=== PATIENT | female | born 1965 | race Asian ===

== ENCOUNTER 2019-12-04 07:11 | Day surgery (SDC) | payer OTHER ==
[~2019-12-04] VITALS: Ht 154.9 cm; Wt 49.9 kg
[2019-12-04] MEDS ORDERED: MIDAZOLAM 2 MG/2 ML VIAL ONE ×2 (08:40→08:53)
[2019-12-04] MEDS ORDERED: LIDOCAINE 2% 100 MG/5 ML UJET TP ONE (08:40)
[2019-12-04] MEDS ORDERED: fentaNYL 0.05 MG/ML VIAL ONE (08:40)
[2019-12-04] MEDS ORDERED: EPINEPHrine PFS 0.1 MG/ML SYR IVP ONE (09:25)
[2019-12-04] MEDS ORDERED: fentaNYL 0.05 MG/ML VIAL IVP ONE (09:45)
[2019-12-04] MEDS ORDERED: MIDAZOLAM 2 MG/2 ML VIAL IVP ONE (09:45)
== END 2019-12-04 10:00 | disposition home or self-care (01) ==
LOC: MDS 07:11 → MMU 07:12 → MDS 10:00
PROVIDERS: ATTEND Internal Medicine Gastroenterology
DX: Z12.11 Encounter for screening for malignant neoplasm of colon (principal); K63.5 Polyp of colon; K21.9 Gastro-esophageal reflux disease without esophagitis; I10 Essential (primary) hypertension; E78.00 Pure hypercholesterolemia, unspecified; Z79.82 Long term (current) use of aspirin; Z79.899 Other long term (current) drug therapy; Z98.890 Other specified postprocedural states
CPT/HCPCS: 45381; 45385; J0171; J2250; J3010

== ENCOUNTER 2019-12-05 21:32 | Observation (INO) | payer OTHER ==
[~2019-12-05] VITALS: Ht 157.5 cm; Wt 58.1 kg
[2019-12-05 21:35] VITALS: BP 105/70
--- NOTE | 2019-12-05 21:46 | NUR ---
PT AMBULATED TO BED #1
--- NOTE | 2019-12-05 22:21 | NUR ---
SALES COMMUNICATIONS MANAGER ON THE LINE FOR [employer]. SALES COMMUNICATIONS MANAGER IS VARSHA AND NUMBER IS [id number].
[2019-12-05 22:33] LABS: BASOPHILS # (AUTO) 0.1 K/uL (0.00-0.22); BASOPHILS % (AUTO) 0.6 % (0.0-2.0); EOSINOPHILS # (AUTO) 0.1 K/uL (0-0.4); EOSINOPHILS % (AUTO) 1.3 % (0.0-4.0); HEMATOCRIT 42.4 % (36-48); HEMOGLOBIN 13.6 g/dL (12.0-16.0); LYMPHOCYTES # (AUTO) 3.6 K/uL (2.5-16.5); LYMPHOCYTES % (AUTO) 32.4 % (20.5-51.1); MEAN CORPUSCULAR HEMOGLOBIN 30 pg (27-31); MEAN CORPUSCULAR HGB CONC 32 g/dL (33-37); MEAN CORPUSCULAR VOLUME 93.1 fL (80-94); MONOCYTES # (AUTO) 1.1 K/uL (0.8-1.0); MONOCYTES % (AUTO) 10.1 % (1.7-9.3); NEUTROPHILS # (AUTO) 6.2 K/uL (1.8-7.7); NEUTROPHILS % (AUTO) 55.6 % (42.2-75.2); PLATELET COUNT (AUTO) 411 K/uL (140-450); RED BLOOD CELL COUNT(AUTO) 4.56 MIL/uL (4.20-5.40); RED CELL DISTRIBUTION WIDTH 14.1 % (11.6-13.7); WHITE BLOOD COUNT (AUTO) 11.1 K/uL (4.8-10.8)
[2019-12-05 23:23] LABS: PROTHROMBIN TIME 9.9 secs (10.8-13.4)
[2019-12-05 23:28] LABS: ALBUMIN 3.7 g/dL (3.4-5.0); ANION GAP 13.8 (8-16); CARBON DIOXIDE 25.2 mmol/L (21-32); CREATININE 0.6 mg/dL (0.6-1.3); TOTAL BILIRUBIN 0.2 mg/dL (0.0-1.0)
[2019-12-06 01:05] VITALS: BP 100/68
--- NOTE | 2019-12-06 01:05 | NUR ---
RECEIVED FROM ED, PT VIA Moy DAILEY A O X 4, PT NOT ABLE TO AMBULATE PER ANIMAL SCIENCE PROFESSOR AT THIS TIME. PT WITH IV ON THE R THUMB G 22; AND LEFT HAND G 22, 2 LITERS OF BOLUS RUNNING, PATENT. PT COSTA RICAN SPEAKING W/ ANIMAL SCIENCE PROFESSOR FRIEND AT BEDSIDE, MRSA SWAB DONE. PLACED ON LOW BED, FALL RISK PROTOCOL IN PLACE. CALL LIGHT WITHIN REACH.
--- NOTE | 2019-12-06 01:05 | NUR ---
PT CRYING IN PAIN; ASKED CAR PILOT/FRIEND BOBBY W/ CELL PHONE NO [phone], FRIEND SAID SHE HAS PAIN ON HER LOW BACK
--- NOTE | 2019-12-06 01:15 | NUR ---
Patient will be admitted to care of DR. WORTHINGTON. Admited to TELEMETRY. Will go to room 105A. Belongings list completed. Report to [facility]ST RN.
[2019-12-06] MEDS ORDERED: NACL 0.9% 2,000 ML IV ONE (01:25)
--- NOTE | 2019-12-06 01:45 | NUR ---
PT'S PHYSICAL AND ASSESSMENT DONE, PATIENT'S SKIN INTACT; CHECKED ON RECTAL BELEEDING; NO BLEEDING NOTED AT THIS TIME. WILL MONITOR
--- NOTE | 2019-12-06 01:47 | NUR ---
[facility] NO- [phone]
--- NOTE | 2019-12-06 01:48 | NUR ---
PT'S WAS ASKED USING CLAIM MANAGER PHONE [id number] [phone] CONSENT FOR BLOOD TRANSFUSION. PT AGREED AND SIGNED, PT MADE A FAISAL W/ A PEN ON THE PT'S AGREEING TO HAVE A BLOOD TRANSFUSION AT 0148. WITNESSED,CONSENT ATTACHED TO CHART
--- NOTE | 2019-12-06 02:39 | NUR ---
CALLED [facility] FOR DR COONEY FARM PRODUCT PURCHASER OF DR. WORTHINGTON FOR ORDERS . TALKED TO CHULA-AWAITING CALL BACK
[2019-12-06] MEDS ORDERED: NACL 0.9% 1,000 ML IV SCH (02:50)
[2019-12-06] MEDS ORDERED: ONDANSETRON 4 MG/2 ML VIAL IVP PRN (02:55)
[2019-12-06] MEDS ORDERED: MORPHINE SULFATE 4 MG/ML SYR IVP PRN (02:55)
--- NOTE | 2019-12-06 02:59 | NUR ---
DR. COONEY CALLED BACK AND GAVE ORDERS, CARRIED DR. COLE
--- NOTE | 2019-12-06 03:10 | NUR ---
VERIFIED W/ DOCTOR EROS EARLIER W/ ORDERS TO GIVE THE MORPHINE FOR PAIN IN HER BACK 05/01,ADMINISTERED MORPHINE PRN
--- NOTE | 2019-12-06 05:00 | NUR ---
CHECKED ON PATIENT, SLEEPING. NO COMPLAINTS AT THIS TIME. NO BLEEDING NOTED
--- NOTE | 2019-12-06 06:00 | NUR ---
PT ASLEEP BUT EASILY AWAKENED, NO COMPLAINTS OF PAIN AT THIS TIME. NO SOB, NO RESPIRATORY DISTRESS. ENDORSED TO NEXT SHIFT FOR CONTINUITY OF CARE.
--- NOTE | 2019-12-06 07:15 | NUR ---
RECEIVED REPORT FROM NIGHT NURSE. PT IN STABLE CONDITION, AWAKE IN BED, NO DISTRESS NOTED. IV IN PLACE IN R H 22G SALINE LOCKED, PATENT AND ASYMPTOMATIC. RESPIRATIONS EVEN AND UNLABORED ON ROOM AIR, CLEAR BREATH SOUNDS. NPO STATUS. PT ABLE TO AMBULATE WITH ASSIST. SKIN INTACT. PT CLAIMS BACK PAIN DURING FAMILY SERVICE COUNSELOR, NO PAIN REPORTED AT THIS TIME. SAFETY MEASURES IN PLACE. CALL LIGHT WITHIN REACH. BED IN LOW POSITION. WILL CONTINUE TO MONITOR.
[2019-12-06 07:26] LABS: ANION GAP 13.3 (8-16); BASOPHILS % (AUTO) 0.4 % (0.0-2.0); CARBON DIOXIDE 24.9 mmol/L (21-32); EOSINOPHILS % (AUTO) 0.3 % (0.0-4.0); HEMATOCRIT 33.6 % (36-48); HEMOGLOBIN 10.9 g/dL (12.0-16.0); LYMPHOCYTES # (AUTO) 2.8 K/uL (2.5-16.5); LYMPHOCYTES % (AUTO) 23.5 % (20.5-51.1); MEAN CORPUSCULAR HEMOGLOBIN 30 pg (27-31); MEAN CORPUSCULAR HGB CONC 33 g/dL (33-37); MEAN CORPUSCULAR VOLUME 93.3 fL (80-94); MONOCYTES # (AUTO) 0.6 K/uL (0.8-1.0); MONOCYTES % (AUTO) 4.8 % (1.7-9.3); NEUTROPHILS # (AUTO) 8.4 K/uL (1.8-7.7); PLATELET COUNT (AUTO) 339 K/uL (140-450); POTASSIUM 4.2 mmol/L (3.5-5.1); WHITE BLOOD COUNT (AUTO) 11.9 K/uL (4.8-10.8)
[2019-12-06 07:37] LABS: CREATININE 0.5 mg/dL (0.6-1.3)
[2019-12-06 08:00] VITALS: BP 102/57
--- NOTE | 2019-12-06 08:18 | NUR ---
PATIENT HAS BEEN SCREENED AND CATEGORIZED MODERATE NUTRITION RISK. PATIENT WILL BE SEEN WITHIN 3-5 DAYS OF ADMISSION. 12/08/19 12/10/[address]
--- NOTE | 2019-12-06 09:12 | NUR ---
PT IN BED SLEEPING, NO DISTRESS NOTED. RESPIRATIONS EVEN AND UNLABORED ON ROOM AIR. SAFETY MEASURES IN PLACE. CALL LIGHT WITHIN REACH, WILL CONTINUE TO MONITOR.
--- NOTE | 2019-12-06 10:33 | NUR ---
PT IN BED AWAKE, FAMILY MEMBER AT THE BEDSIDE. CONSULTED PT ABOUT BACK PAIN, PT EXPRESSED HER BACK WAS FEELING OK, NO PAIN. SAFETY MEASURES IN PLACE. CALL LIGHT WITHIN REACH, WILL CONTINUE TO MONITOR.
--- NOTE | 2019-12-06 12:25 | NUR ---
PT IN BED, AWAKE, NO DISTRESS NOTED, PT DENIES PAIN. FAMILY MEMBER AT THE BEDSIDE. SAFETY MEASURES IN PLACE, CALL LIGHT WITHIN REACH, BED IN LOW POSITION. WILL CONTINUE TO MONITOR.
--- NOTE | 2019-12-06 14:42 | NUR ---
PT IN BED, AWAKE, NO DISTRESS NOTED, DENIES PAIN. FAMILY MEMBER AT THE BEDSIDE. SAFETY MEASURES IN PLACE, BED IN LOW POSITION. CALL LIGHT WITHIN REACH, WILL CONTINUE TO MONITOR.
[2019-12-06 16:00] VITALS: BP 98/61
[2019-12-06] MEDS ORDERED: ACETAMINOPHEN EXTRA STRENGTH 500 MG TAB PO PRN (16:50)
[2019-12-06] MEDS ORDERED: HYDROcodone/APAP 5/325 MG 1 TAB TAB PO PRN (16:50)
--- NOTE | 2019-12-06 17:50 | NUR ---
IV FLUIDS DISCONTINUED PER ORDER OF DR WORTHINGTON. 600ML INFUSED DURING SHIFT. 800ML TOTAL. PT DENIES PAIN, NO DISTRESS NOTED. FAMILY MEMBER STILL AT THE BEDSIDE. SAFETY MEASURES IN PLACE, BED IN LOW POSITION. CALL LIGHT WITHIN REACH, WILL CONTINUE TO MONITOR.
--- NOTE | 2019-12-06 19:05 | NUR ---
REPORT GIVEN TO NIGHT NURSE FOR CONTINUITY OF CARE.
--- NOTE | 2019-12-06 19:05 | NUR ---
RECEIVED REPORT FROM MELYSSA CHAO DAYSHIFT NURSE AT BEDSIDE FOR CONTINUITY OF CARE, PT IN STABLE CONDITION.
--- NOTE | 2019-12-06 20:00 | NUR ---
PT IN BED NO S/S OF PAIN OR DISTRESS NOTED. PT HAS 2 IV SITES L WRIST 22 G AND RIGHT THUMB 22G, BOTH ARE SALINE LOCKED. PT V/S FOLLOWS: T 97.8 P 65 R 18 B/P 137/69 02 100% ON ROOM AIR. PT HAS NO S/S O PAIN OR DISTRESS NOTED.
--- NOTE | 2019-12-06 20:45 | NUR ---
PT FRIEND CAME TO VISIT AND PT ASKED HIM TO TRANSLATE FOR HER. WITH PT PERMISSION TO SPEAK ABOUT PT CONDITION, PT ASKED IF SHE WOULD BE GOING HOME TOMORROW. PT REPORTS NO BLEEDING, NO PAIN AND NO DIARRHEA. PT INFORMED THAT THIS IS THE PLAN OF ACTION, BUT THAT NO MD ORDERS HAVE BEEN WRITTEN FOR DISCHARGE AND THAT WE WILL CONTINUE TO MONITOR FOR BLEEDING AND PAIN OVERNIGHT. PT VERBALIZED ACKNOWLEDGEMENT. PT ALSO C/O THAT LEFT WRIST IV IS HURTING AND WAS ASKING IF SHE CAN TAKE OUT THAT IV SITE. PT IV SITE WAS DISCONTINUED DUE TO PAIN WHEN TOUCHING IV SITE. RIGHT THUMB IV SITE WAS FLUSHED PATENT AND IS ASYMPTOMATIC. PT CONTINUES TO BE SALINE LOCKED. ALL REQUESTED NEEDS ATTENDED, CALL GAGE IN REACH AND ALL FALLS PROTOCOL IN PLACE.
--- NOTE | 2019-12-06 22:35 | NUR ---
PT UP TO TOILET AND BACK SAFELY NO C/O VOICEC NO S/S OF BLEEDING NO C/O VOICED. ALL FALLS PRECAUTIONS IN PLACE.
[2019-12-06] MEDS ORDERED: FERR-20 PO (23:52)
[2019-12-07] VITALS: BP 120/73
--- NOTE | 2019-12-07 | NUR ---
PT IN BED NO C/O VOICED V/S FOLLOWS; T 97.4 P 67 R 20 B/P 120/73 02 97% ON ROOM AIR. ALL FALLS PRECAUTIONS IN PLACE.
--- NOTE | 2019-12-07 04:00 | NUR ---
PT IN BED RESTING NO S/S OF PAIN OR DISTRESS NOTED. USED [employer] SHEEP OR CALF GRADER PHONES . THROUGH SHEEP OR CALF GRADER, PT SAID SHE HAD NO PAIN OR RECTAL BLEEDING. EXPLAINED TO PT THAT ORTHOSTATIC HYPOTENSION BLOOD PRESSURE NEEDS TO BE TAKEN (B/P STANDING 134/83; SITTING 104/76: B/P LYING DOWN 117/60) WAS DONE. ALSO EXPLAINED TO PT THAT HER PRIMARY DOCTOR PUT IN AN ORDER FOR DISCHARGE AT 10AM. FURTHER MORE EXPLAINED TO PT THAT THEY WILL EXPLAIN MORE OF THE DISCHARGE INSTRUCTIONS BUT THAT SHE WILL NEED TO FOLLOW UP WITH HER PRIMARY PHYSICIAN WITHIN A WEEK OR SOON POSSIBLE AND IF SHE STARTS TO HAVE THE RECTAL BLEED AGAIN TO COME BACK TO ER. PT ACKNOWLEDGED THESE INSTRUCTIONS.
--- NOTE | 2019-12-07 06:00 | NUR ---
PT SITTING UP IN BED AWAKE NO C/O VOICED, ALL FALLS PRECAUTIONS IN PLACE.
[2019-12-07 06:36] LABS: BASOPHILS % (AUTO) 0.7 % (0.0-2.0); EOSINOPHILS # (AUTO) 0.1 K/uL (0-0.4); EOSINOPHILS % (AUTO) 1.7 % (0.0-4.0); HEMATOCRIT 29.9 % (36-48); HEMOGLOBIN 9.9 g/dL (12.0-16.0); LYMPHOCYTES # (AUTO) 2.7 K/uL (2.5-16.5); LYMPHOCYTES % (AUTO) 37.3 % (20.5-51.1); MEAN CORPUSCULAR HEMOGLOBIN 31 pg (27-31); MEAN CORPUSCULAR HGB CONC 33 g/dL (33-37); MEAN CORPUSCULAR VOLUME 93.6 fL (80-94); MONOCYTES # (AUTO) 0.6 K/uL (0.8-1.0); MONOCYTES % (AUTO) 7.7 % (1.7-9.3); NEUTROPHILS # (AUTO) 3.8 K/uL (1.8-7.7); NEUTROPHILS % (AUTO) 52.6 % (42.2-75.2); PLATELET COUNT (AUTO) 317 K/uL (140-450); RED BLOOD CELL COUNT(AUTO) 3.19 MIL/uL (4.20-5.40); RED CELL DISTRIBUTION WIDTH 13.9 % (11.6-13.7); WHITE BLOOD COUNT (AUTO) 7.2 K/uL (4.8-10.8)
[2019-12-07 06:58] LABS: ALBUMIN 3.2 g/dL (3.4-5.0); ANION GAP 10.9 (8-16); CARBON DIOXIDE 27.2 mmol/L (21-32); CREATININE 0.5 mg/dL (0.6-1.3); POTASSIUM 4.1 mmol/L (3.5-5.1); TOTAL BILIRUBIN 0.3 mg/dL (0.0-1.0)
--- NOTE | 2019-12-07 07:20 | NUR ---
RECEIVED REPORT FROM NIGHT NURSE.PT IN BED SLEEPING, NO DISTRESS NOTED. IV IN PLACE IN L THUMB 22G SALINE LOCKED PATENT AND ASYMPTOMATIC. RESPIRATIONS EVEN AND UNLABORED ON ROOM AIR, CLEAR BREATH SOUNDS. PT AMBULATORY, CONTINENT. SAFETY MEASURES IN PLACE. CALL LIGHT WITHIN REACH. BED IN LOW POSITION, WILL CONTINUE TO MONITOR.
[2019-12-07] MEDS ORDERED: PNEUMOCOCCAL VACCINE 23 MCG/0.5 ML VIAL IMVAC SCH (09:50)
--- NOTE | 2019-12-07 09:51 | NUR ---
SPOKE TO DR STEWART AND INFORMED HIM ABOUT PTS HBG LEVEL TRENDING DOWN FROM 10.[address] STEWART SAID PT STABLE FOR DISCHARGE. WILL DISCHARGE PT HOME.
[2019-12-07 09:53] VITALS: BP 135/79
--- NOTE | 2019-12-07 10:50 | NUR ---
PT DISCHARGED HOME AT THIS TIME. DISCHARGE, FOLLOWUP AND MEDICATION TEACHING GIVEN, PT VERBALIZED UNDERSTANDING. DISCHARGE PAPERWORK SIGNED BY PT. PNA VACCINE GIVEN PRIOR TO DISCHARGE, FLU VACCINE NOT GIVEN UP TO DATE. ID BANDS REMOVED. IV SITE REMOVED WITH MINIMAL BLOOD LOSS AND LUMEN INTACT. SKIN INTACT UPON DISCHARGE. BELONGINGS VERIFIED WITH PT AND RETURNED. VITAL SIGNS STABLE UPON DISCHARGE, RESPIRATIONS EVEN AND UNLABORED ON ROOM AIR. PT ESCORTED OFF UNIT ON FOOT. LEFT HOSPITAL IN PRIVATE VEHICLE ACCOMPANIED BY SPOUSE.
== END 2019-12-07 10:50 | disposition home or self-care (01) ==
LOC: MED 21:32 → MTU 12-06 00:46
PROVIDERS: ADMIT Hospitalist; ATTEND Hospitalist
DX: K92.1 Melena (principal); R55 Syncope and collapse; I10 Essential (primary) hypertension; E78.5 Hyperlipidemia, unspecified; F32.9 Major depressive disorder, single episode, unspecified; Z23 Encounter for immunization; Z86.010 Personal history of colon polyps; Z79.899 Other long term (current) drug therapy
CPT/HCPCS: 36415; 74022; 80048; 80053; 82150; 83690; 85025; 85610; 85730; 86886; 86900; 86901; 87081; 90471; 90732; 96361; 96374; 99285; G0378; J2270; Q0092; 86920; 96360

== ENCOUNTER 2020-05-13 08:15 | Day surgery (SDC) | payer OTHER, SELFPAY ==
[~2020-05-13 08:15] MED LIST: FERR-20 PO
[2020-05-13] MEDS ORDERED: diphenhydrAMINE 50 MG/ML VIAL ONE (10:29)
[2020-05-13] MEDS ORDERED: MIDAZOLAM 2 MG/2 ML VIAL ONE (10:29)
[2020-05-13] MEDS ORDERED: fentaNYL citrate 0.05 MG/ML VIAL ONE (10:29)
[2020-05-13] MEDS ORDERED: LIDOCAINE 2% 100 MG/5 ML UJET TP ONE (10:29)
[2020-05-13] MEDS ORDERED: MIDAZOLAM 2 MG/2 ML VIAL IVP ONE (12:50)
[2020-05-13] MEDS ORDERED: fentaNYL citrate 0.05 MG/ML VIAL IVP ONE (12:50)
== END 2020-05-13 12:05 | disposition home or self-care (01) ==
LOC: MFCC 08:15 → MDS 08:15
PROVIDERS: ATTEND Internal Medicine Gastroenterology
DX: Z12.11 Encounter for screening for malignant neoplasm of colon (principal); K63.5 Polyp of colon; I10 Essential (primary) hypertension; E78.00 Pure hypercholesterolemia, unspecified; K21.9 Gastro-esophageal reflux disease without esophagitis; F32.9 Major depressive disorder, single episode, unspecified; Z79.899 Other long term (current) drug therapy; Z79.82 Long term (current) use of aspirin; Z98.890 Other specified postprocedural states; Z11.59 Encounter for screening for other viral diseases
CPT/HCPCS: 45380; 45385; J2250; J3010; U0003; J1200